=== PATIENT | male | born 1970 | race Caucasian/White ===

== ENCOUNTER 2016-08-31 11:25 | Emergency (ER) | payer OTHER ==
[~2016-08-31] VITALS: Ht 177.8 cm; Wt 101.8 kg
[~2016-08-31 11:25] MED LIST: ALBUTEROL17 GM IH; BACTRIM,SEPT1 TABLET PO; CLINDAMYCIN HC150 MG PO; CLINDAMYCIN HC300 MG PO; FLEXERIL10 MG PO; LEVAQUIN500 MG PO; MEDROL DOSEPAK4 MG PO; MOTRIN800 MG PO; NAPROSYN500 MG PO; NOHOMEMEDS; NORCO 5/3251 TABLET PO; SKELAXIN800 MG PO; TRAMADOL HCL50 MG PO; TYLENOL WITH C1 EACH PO; VENTOLIN HFA18 GM IH; VIBRAMYCIN100 MG PO
[2016-08-31 12:14] LABS: HEMATOCRIT 48.5 % (38.0-50.0); MCH 30.4 PG (29.0-34.0); MCHC 34.4 G/DL (30.0-36.0); MCV 88.2 FL (86-99); MEAN PLAT.VOLUME 8.9 uM^3 (9.0-12.4); PLATELET COUNT 293 K/uL (156-360); RBC DIS.WIDTH-CV 11.9 % (11.8-14.6); RBC DIS.WIDTH-SD 38.7 % (39-53); WHITE BLOOD COUNT 5.6 K/uL (4.1-10.2)
[2016-08-31 12:29] LABS: CHLORIDE 103 mEq/L (99-109); POTASSIUM 3.9 mEq/L (3.7-5.4); SODIUM 139 mEq/L (136-147)
[2016-08-31 12:31] LABS: GLUCOSE 121 mg/dL (70-99)
[2016-08-31 12:32] LABS: ANION GAP 8 MEQ/L (2-14)
[2016-08-31 12:35] LABS: GFR ESTIMATE (CALCULATED) > 59 mL/min/
[2016-08-31 12:36] LABS: UREA NITROGEN (BUN) 11 mg/dL (9-23)
[2016-08-31 12:37] LABS: TROP-I INTERPRETATION NEGATIVE; TROPONIN-I < 0.01 ng/mL (0.0-0.30)
[2016-08-31 13:13] LABS: D-DIMER ELISA 0.47 mg/L FEU (< 0.57)
[2016-08-31] MEDS ORDERED: TYLENOL WITH C1 EACH PO (14:19)
[2016-08-31 14:41] LABS: TROP-I INTERPRETATION NEGATIVE; TROPONIN-I < 0.01 ng/mL (0.0-0.30)
[2016-08-31 15:29] VITALS: BP 149/94
== END 2016-08-31 15:29 | disposition home or self-care (01) ==
LOC: EME 11:25
PROVIDERS: Emergency Medicine
DX: R07.89 Other chest pain (principal); M54.89 Other dorsalgia
CPT/HCPCS: 71020; 80048; 84484; 85027; 85379; 93005; 99281; 99285; J1885; J2270

== ENCOUNTER 2017-01-31 15:12 | Emergency (ER) | payer OTHER ==
[~2017-01-31] VITALS: Ht 175.3 cm; Wt 100.0 kg
[2017-01-31] MEDS ORDERED: BENADRYL50 MG PO (16:15)
[2017-01-31 16:36] VITALS: BP 161/112
== END 2017-01-31 16:37 | disposition home or self-care (01) ==
LOC: EME 15:12
DX: S20.469A Insect bite (nonvenomous) of unspecified back wall of thorax, initial encounter (principal); W57.XXXA Bitten or stung by nonvenomous insect and other nonvenomous arthropods, initial encounter
CPT/HCPCS: 99281; 99283